=== PATIENT | female | born 1965 | race Caucasian/White ===

== ENCOUNTER 2019-06-14 13:19 | Emergency (ER) | payer SELFPAY ==
[~2019-06-14] VITALS: Ht 167.7 cm; Wt 64.0 kg
[2019-06-14] MEDS ORDERED: ACETAMINOPHEN 500 MG TAB (TYLENOL) PO ONE (13:45)
--- NOTE | 2019-06-14 13:51 | ED Lower Extremity ---
General Chief Complaint: Lower Extremity Stated Complaint: RT LEG/BACK INJ Source: patient Exam Limitations: no limitations History of Present Illness Date Seen by Provider: Jun 14, 2019 Time Seen by Provider: 13:30 Initial Comments The patient is a 53-year-old female who presents for evaluation of right heel and lower/mid back pain. He states that she was holding a bag of food and fell out of a truck landing on her right heel. She says she is able to walk if she puts her weight on her toes. She denies hitting her head or losing consciousness. She states she had a history of herniated disc in her lumbar spine which was surgically repaired several years ago. She states that the right heel pain is significantly worse than the back discomfort. She denies chest pain or shortness of breath, abdominal pain, vision changes, focal weakness or n umbness, dizziness or syncope. She is alert and oriented 4, calm, and appears to be in no distress. She has several excoriated wounds on her extremities which are concerning in appearance for methamphetamine abuse which she denies. Severity: moderate Pain/Injury Location: right heel Method of Injury: fell Modifying Factors: Improves With Movement (makes it worse) Allergies and Home Medications Allergies Coded Allergies: No Known Drug Allergies (Unverified , 06/14/19) Patient Home Medication List Home Medication List Reviewed: Yes Review of Systems Constitutional: no symptoms reported EENTM: no symptoms reported Respiratory: no symptoms reported Cardiovascular: no symptoms reported Gastrointestinal: no symptoms reported Genitourinary: no symptoms reported Musculoskeletal: back pain, other (right heel pain) Skin: no symptoms reported Psychiatric/Neurological: No Symptoms Reported All Other Systems Reviewed Negative Unless Noted: Yes Past Hhhfqwv-Rwebri-Ldxorv Hx Past Med/Social Hx: Reviewed Nursing Past Med/Soc Hx Patient Social History Alcohol Use: Denies Use Recreational Drug Use: No Smoking Status: Current Everyday Smoker Type Used: Cigarettes 2nd Hand Smoke Exposure: No Recent Foreign Travel: No Recent Hopitalizations: No Physical Abuse: No Sexual Abuse: No Mistreated: No Fear: No Seasonal Allergies Seasonal Allergies: No Past Medical History Surgeries: Yes (Back surgery) Orthopedic Respiratory: No Cardiac: No Neurological: Yes Neuropathy Genitourinary: No Gastrointestinal: No Musculoskeletal: No Endocrine: No HEENT: No Cancer: No Psychosocial: No Blood Disorders: No Physical Exam Vital Signs Vital Signs - First Documented 06/14/19 13:20 Temp 36.5 Pulse 99 Resp 18 B/P (MAP) 115/97 (103) Pulse Ox 100 O2 Delivery Room Air Capillary Refill : Height, Weight, BMI Height: '" Weight: lbs. oz. kg; BMI Method: General Appearance: WD/WN, no apparent distress HEENT: PERRL/EOMI, normal ENT inspection Neck: non-tender, full range of motion, supple, normal inspection Cardiovascular: regular rate, rhythm, no edema Gastrointestinal: normal bowel sounds, non tender, soft Back: no CVA tenderness, vertebral tenderness (mild tenderness at approximately T8 T10) Hips: bilateral hip non-tender, bilateral hip normal inspection, bilateral hip normal range of motion Knees: bilateral knee non-tender, bilateral knee normal inspection, bilateral knee normal range of motion, bilateral knee no evidence of injury Ankles: bilateral ankle non-tender, bilateral ankle normal inspection, bilateral ankle normal range of motion, bilateral ankle no evidence of injury Feet: left foot non-tender, left foot normal inspection, left foot normal range of motion; right foot bone tenderness (right heel ttp, ild swelling) Neurologic/Psychiatric: no motor/sensory deficits, alert, normal mood/affect, oriented x 3 Skin: normal color, warm/dry, other (several excoriations on the skin consistent with likely methamphetamine abuse) Progress/Results/Core Measures Results/Orders My Orders Orders - BENITO AMADOR DO Heel 2 View Right (06/14/19 13:33) Thoracic Spine 3v Ap Lat Swim (06/14/19 13:33) Lumbar Spine 2 Or 3 View (06/14/19 13:33) Acetaminophen Tablet (Tylenol Tablet) (06/14/19 13:45) Ice: Apply To Affected Area (06/14/19 13:38) Ct Extremity Lower Right Wo (06/14/19 14:10) Crutches (06/14/19 14:46) Medications Given in ED Current Medications Medications Dose Ordered Sig/[place] Route Start Time Stop Time Status Last Admin Dose Admin Acetaminophen 1,000 mg ONCE ONCE PO 06/14/19 13:45 06/14/19 13:46 DC 06/14/19 13:43 1,000 MG Vital Signs/I&O 06/14/19 13:20 Temp 36.5 Pulse 99 Resp 18 B/P (MAP) 115/97 (103) Pulse Ox 100 O2 Delivery Room Air Progress Progress Note : Progress Note @1520 - patient updated on imaging results which show a calcaneal fracture. The patient has been given a orthopedic boot and crutches. Advised the patient to follow up with orthopedics in the next 2-3 days and to return to the emergency Department immediately for new or worsening symptoms. The patient expresses verbal understanding and agreement with the plan and is stable for discharge. Diagnostic Imaging Diagonstic Imaging: CT Comments [facility], [place] NAME: BELEN FINCH [facility] REC#: [id number] PT STATUS: REG ER : 1965 PHYSICIAN: BENITO AMADOR DO ADMIT DATE: 06/14/19/ER FS Draft Date of Exam:06/14/19 CT EXTREMITY LOWER RIGHT WO PROCEDURE: CT right lower extremity without contrast. TECHNIQUE: An axially acquired CT was obtained through the right lower extremity without intravenous contrast. Coronal and sagittal reformations were also performed. Auto Exposure Controls were utilized during the CT exam to meet ALARA standards for radiation dose reduction. INDICATION: Pain. FINDINGS: There is an essentially nondisplaced fracture through the posterior 3rd of the calcaneus. This extends from an anterior medial aspect to a posterior lateral aspect. This is not significantly comminuted. There is no other fracture or dislocation. The plafond and talar dome are intact. The ankle mortise remains symmetric. There are no other focal soft tissue abnormalities. IMPRESSION: Nondisplaced calcaneal fracture as described. Dictated on workstation # [id number] Dict: 06/14/19 1505 Trans: 06/14/19 1510 [id number] Interpreted by: LAZARO UNGER MD Electronically signed by: Departure Impression Primary Impression: Calcaneal fracture Disposition: 01 HOME, SELF-CARE Condition: Stable Departure-Patient Inst. Decision time for Depature: 15:25 Referrals: LUIS ALBERTO BAEZ MD Patient Instructions: Heel Fracture Add. Discharge Instructions: Wear the boot and use the crutches provided. Follow-up with orthopedics in the next 1-2 days. Take the prescribed medicine as directed. Return to the emergency Department immediately for new or worsening symptoms. Scripts Hydrocodone/Acetaminophen ([place] 5-325 Tablet) 1 Each Tablet 1 TAB PO Q4-6HR for Pain MDD 10 TABS for 5 Days, #20 TAB Prov: BENITO AMADOR DO 06/14/19 BENITO AMADOR DO Jun 14, 2019 13:51
--- NOTE | 2019-06-14 14:08 | Diagnostic Imaging Report ---
INDICATION: Back pain. Three views were obtained. FINDINGS: Bones are osteopenic. Vertebral body heights are grossly well-maintained. There is some diffuse degenerative change. There is no obvious fracture or traumatic subluxation. IMPRESSION: Osteopenia and mild thoracic spondylosis, otherwise unremarkable. If however there is high clinical concern for early compression fracture, further evaluation with MRI should be considered. Dictated by: Dictated on workstation # [id number]
--- NOTE | 2019-06-14 14:11 | Diagnostic Imaging Report ---
INDICATION: Heel pain. Two views were obtained. FINDINGS: There is a faint vertical lucency through the posterior aspect of the calcaneus which appears to extend to the cortex both superiorly and inferiorly. This is suspect for an occult nondisplaced fracture. No other fracture or dislocation is appreciated. IMPRESSION: Findings suspect for an occult fracture of the calcaneus. Further evaluation with CT is recommended. Findings conveyed directly to Dr. Tab Espinoza via telephone. Dictated by: Dictated on workstation # [id number]
--- NOTE | 2019-06-14 14:13 | Diagnostic Imaging Report ---
INDICATION: Back pain. FINDINGS: Bones are mildly osteopenic. The vertebral body heights are relatively well-maintained. There is some degenerative disc disease at L4-L5 and L5-S1. There is some lower lumbar hypertrophic degenerative facet disease. IMPRESSION: Osteopenia and lower lumbar degenerative disc disease. If there is a focal back pain the possibility of an occult compression fracture certainly could not be excluded. Recommend clinical correlation and if warranted follow-up with MRI. Dictated by: Dictated on workstation # [id number]
--- NOTE | 2019-06-14 15:11 | Diagnostic Imaging Report ---
PROCEDURE: CT right lower extremity without contrast. TECHNIQUE: An axially acquired CT was obtained through the right lower extremity without intravenous contrast. Coronal and sagittal reformations were also performed. Auto Exposure Controls were utilized during the CT exam to meet ALARA standards for radiation dose reduction. INDICATION: Pain. FINDINGS: There is an essentially nondisplaced fracture through the posterior 3rd of the calcaneus. This extends from an anterior medial aspect to a posterior lateral aspect. This is not significantly comminuted. There is no other fracture or dislocation. The plafond and talar dome are intact. The ankle mortise remains symmetric. There are no other focal soft tissue abnormalities. IMPRESSION: Nondisplaced calcaneal fracture as described. Dictated by: Dictated on workstation # [id number]
[2019-06-14] MEDS ORDERED: HYDR-4226 PO (15:26)
[2019-06-14 15:31] VITALS: BP 115/97
--- OUTSIDE RECORDS SUMMARY | 2019-06-24 03:15 | XMS REPORT | Continuity of Care Document ---
Author Organization Unknown Address Unknown Phone Unavailable Allergies Active Description Code Type Severity Reaction Onset Reported/Identified Relationship to Patient Clinical Status Yes No Known Drug Allergies [id number] Drug Allergy Unknown N/A 06/14/2019 Medications There is no data. Problems Date Dx Coded Attending Type Code Diagnosis Diagnosed By 07/11/2013 JUSTINE FIGUEROA DDS V72 .2 DENTAL EXAMINATION Procedures Code Description [place] D0140 LIMI T ORAL EVAL PROBLM FOCUS 07/11/2013 D0220 INTR AORAL PERIAPICAL FIRST F 07/11/2013 Results There is no data. Encounters ACCT No. Visit Date/Time Discharge Status Pt. Type Provider Facility Loc./Unit Complaint [id number] 07/11/2013 17:21:00 07/11/2013 23:59: 59 CLS Outpatient JUSTINE FIGUEROA DDS [id number] 09/15/2018 08:00:00 09/15/2018 23:59:5 9 CLS Outpatient ELOY BURGOS [facility] [address] [id number] 06/14/2019 13:21:00 020 15:31:00 DIS Emergency MARJORIE OLIVER DO [facility] ER FS RT LEG/BACK INJ
--- OUTSIDE RECORDS SUMMARY | 2019-06-24 03:15 | XMS REPORT ---
Author Author Whit Roebrt Doctor Organization [facility] Address Unknown Phone Unavailable Care Team Providers Care Senior C Software Developer Name Role Phone Migration, Doctor Unavailable Unavailable PROBLEMS Type Condition ICD9-CM Code DEZ35-TU Code Onset Dates Condition S tatus SNOMED Code Problem Dental examination V72.2 Active 3 [id number] ALLERGIES No Information ENCOUNTERS Encounter Location Date Diagnosis [place] [address] [id number] [place] [id number] Aug, 2014 [place] [address] [place] [id number] [place] [phone] Aug, [place] [address] [place] [id number] [place] [phone] Jul, [place] [address] [place] [id number] [place] [phone] Jul, IMMUNIZATIONS No Known Immunizations SOCIAL HISTORY Never Assessed REASON FOR VISIT EMR-[facility] [place]AN OF CARE VITAL SIGNS MEDICATIONS Unknown Medications RESULTS No Results PROCEDURES No Known procedures INSTRUCTIONS MEDICATIONS ADMINISTERED No Known Medications
== END 2019-06-14 15:31 | disposition home or self-care (01) ==
LOC: ER FS 13:21
DX: S92.001A Unspecified fracture of right calcaneus, initial encounter for closed fracture (principal); F17.210 Nicotine dependence, cigarettes, uncomplicated; W17.89XA Other fall from one level to another, initial encounter
CPT/HCPCS: 72072; 72100; 73650; 73700